=== PATIENT | female | born 1960 | race Caucasian/White ===

== ENCOUNTER 2024-08-25 16:03 | Emergency (ER) | payer MEDICARE ==
[~2024-08-25] VITALS: Ht 154.9 cm; Wt 66.8 kg
[~2024-08-25 16:03] MED LIST: ADV50250 IH; ATOR10TA87 PO; CIPR2.5D21 OP; EST1T PO; IBUP-812 PO; LIOT25TA12 PO; PANT40TA39 PO; SERT-153 PO
[2024-08-25 16:11] VITALS: BP 163/82; PULSE 74; RESP 16; O2SAT 99
--- NOTE | 2024-08-25 18:18 | Physician Documentation ---
History of Present Illness ~ Chief Complaint: Laceration Stated Complaint: LAC ON RT HAND Time Seen by MD: 17:35 Primary Medical Doctor: DR CARDENAS HPI 64-year-old female reports a chief complaint of right index finger laceration. Patient states she was cutting a onion when she sustained a laceration. Currently endorses active bleeding. Patient was evaluated at urgent care where they said that the wound was too deep. Patient reports to the ER. Currently he is up-to-date on tetanus. Denies numbness tingling loss of sensation. No other complaints at this time Tetanus Within 5 Years: No Medication Reconciliation Allergies: Coded Allergies: Penicillins (Verified Allergy, Intermediate, RASH, 03/01/12) Sulfa (Sulfonamide Antibiotics) (Unverified Allergy, Unknown, 07/15/22) azithromycin (Unverified Allergy, Unknown, 07/15/22) codeine (Unverified Allergy, Unknown, 07/15/22) Scheduled Atorvastatin Calcium* (Lipitor*), 10 MG PO HS, (Reported) Ciprofloxacin Hcl Ophth* (Ciloxan 0.35 Ophth Drops*), 2 DROP OP Q4HWA Estradiol* (Estrace*), 2 MG PO DAILY, (Reported) Fluticasone/Salmeterol* (Advair 250-50 Diskus*), 1 INH IH BID, (Reported) Ibuprofen (Motrin), 400 MG PO TID Liothyronine Sodium* (Liothyronine Sodium*), 10 MCG PO DAILY, (Reported) Pantoprazole Sodium* (Protonix*), 40 MG PO DAILY, (Reported) Sertraline HCl (Sertraline HCl), 100 MG PO DAILY, (Reported) Past Medical History Past Medical History: Allergic Rhinitis, High Cholesterol, Asthma, COPD, Hypothyroidism Past Surgical History: cholecystectomy, hysterectomy, orthopedic surgeries, tubal ligation Other Past Surgical History: Left HIP, Left Hand Alcohol Use: Occasionally Drug Use: none Lives with: S/O Lives In: Home Occupation: employed Physical Exam Vital Signs: Temperature: 98.0, Source: Temporal, Heart Rate: 74, Respiratory Rate: 16, BP: 163/82, Pulse Oximetry: 99, Weight: 66.800 Oxygen Flow Rate: 0 Physical Exam General: Well developed, well nourished, no distress. HEENT: Atraumatic, normal conjunctiva, moist mucous membranes. Neck: Full range of motion, supple. Respiratory: Lungs clear, no respiratory distress. Chest: No accessory muscle use, nontender. Cardiovascular: Regular rate and rhythm. Gastrointestinal: Soft, nontender, nondistended. Bowel sounds present. Extremities: Right hand exam: Positive for a superficial laceration zone one radial aspect of the index finger. Positive for minimal active bleeding. Full flexion-extension of the D IP and PIP. Neurovascular intact distally Back: No midline tenderness, no CVA tenderness. Neurologic: Oriented x4. Distal gross motor and sensory intact all four extremities. Moves all 4 extremities spontaneously. Psychiatric: Normal mood and affect. Skin: Normal color, warm and dry. No edema, no ecchymosis Procedures Laceration/Wound Repair Laceration : Anesthesia: none Prep: irrigated by physician Wound Repaired With: Steri-strips, Dermabond Dressing Applied: simple, gauze, non-adherent, none Tolerated Procedure Well?: yes, no complications Progress Results/Orders Results/Orders Vital Signs 08/25/24 16:11 Temp 98.0 Pulse 74 Resp 16 B/P (MAP) 163/82 Pulse Ox 99 O2 Flow Rate 0 Medical Decision Making Additional info obtained from: old records Findings After detailed discussion and joint medical decision-making, diagnostic and imaging results were discussed with the patient. At this time patient had Steri-Strips placed with Dermabond. Patient's did not require sutures. ER precautions given. Patient was the keep wound clean dry and intact. ER precautions given. Patient is stable upon discharge. All patient questions answered to satisfaction Differential Dx:Considerations: Include: Abrasion, Avulsion, Contusion, Laceration, Fracture, Hematoma Departure Disposition: HOME / SELF CARE / HOMELESS Impression: Primary Impression: Laceration Condition: Stable Discharge Instructions: Laceration Care (Skin Glue) Referrals: NO PRIMARY CARE PROVIDER (PCP) Education Educated: Patient Educated regarding: diagnosis, treatment Signature Scribe Signature: None used Attestation: Scribed for Brittany Rose by Brittany RAINES . 08/25/24 18:18 BRITTANY ROSE August 25, 2024 18:18
[2024-08-25 18:30] VITALS: TEMP 98
== END 2024-08-25 18:36 | disposition home or self-care (01) ==
LOC: ER 16:04
DX: S61.210A Laceration without foreign body of right index finger without damage to nail, initial encounter (principal); E03.9 Hypothyroidism, unspecified; E78.00 Pure hypercholesterolemia, unspecified; J44.9 Chronic obstructive pulmonary disease, unspecified; Z88.0 Allergy status to penicillin; Z88.1 Allergy status to other antibiotic agents; Z88.2 Allergy status to sulfonamides; Z88.5 Allergy status to narcotic agent; Z90.49 Acquired absence of other specified parts of digestive tract; Z90.710 Acquired absence of both cervix and uterus; W45.8XXA Other foreign body or object entering through skin, initial encounter; Y93.89 Activity, other specified; Y92.89 Other specified places as the place of occurrence of the external cause; Y99.8 Other external cause status
CPT/HCPCS: 12001; 99282; Z7610